=== PATIENT | female | born 1975 | race Caucasian/White ===

== ENCOUNTER 2020-09-19 04:03 | Observation (INO) ==
[2020-09-19] MEDS ORDERED: ONDANSETRON INJ 2 MG/ML 2 ML VIAL IV STA (04:22)
[2020-09-19] MEDS ORDERED: SODIUM CHLORIDE 0.9% 1000ML 1,000 ML IV STA (04:22)
[2020-09-19] MEDS ORDERED: GI COCKTAIL ED USE PO ONE (04:23)
[2020-09-19] MEDS ORDERED: FAMOTIDINE 20MG IV PUSH 20 MG/5 ML SYR IV STA (04:23)
--- NOTE | 2020-09-19 04:28 | Emergency Department Note ---
History of Present Illness General Chief complaint: Abdominal Pain Stated complaint: ABDOMINAL PAIN,NAUSEA,VOMITING Time Seen by Provider: 09/19/20 04:12 Source: patient Mode of arrival: ambulatory Limitations: no limitations History of Present Illness Provider complaint: Abdominal pain Onset (ago): day(s) 3 Maximum Pain Intensity: 7 This 45-year-old female patient presents to the emergency department today for evaluation of abdominal pain, nausea, vomiting. Patient states symptoms began on Thursday. She was seen in [place] emergency department yesterday for the symptoms where she was given Reglan, GI cocktail, had labs drawn, and was discharged with Zofran. The patient states she did not have any imaging at that time. She has been taking Zofran without relief of her symptoms. Since then, her pain has been getting worse and is now wrapping around the right upper quadrant. Patient is already on Prilosec 40 mg due to her history of reflux. She states she did have an endoscopy 5 to 6 years ago which was consistent with gastritis. Patient does report history of a gastric ulcer in her 20s and states she had similar pain at that time, but she does not recall ever wrapping around the right side. Patient states this evening while lying flat, her pain significantly worsened. She denies any associated fever. She states her mother was recently hospitalized for C. difficile and she was not eating well during that time. She states on Thursday, she did eat pizza and recalls some mild discomfort at that time, and had a hamburger on Thursday before the onset of the pain. Patient denies any hematemesis. She denies any diarrhea constipation. Last bowel movement was a few days ago which is normal for her. Patient denies any associated chest pain or dyspnea. Home Medications Medication Instructions Recorded Confirmed Type omeprazole 40 mg PO DAILY 09/19/20 09/19/20 History ondansetron 4 mg PO DAILY 09/19/20 09/19/20 History Allergies Allergy/AdvReac Type Severity Reaction Status Date / Time No Known Allergies Allergy Unverified 09/30/19 14:34 Past Med/Surg History Medical History Abnormal finding on breast imaging Depression with anxiety Gastric ulcer Gastritis Obesity Surgical History No history of previous surgery Family History Father Hypertension Social History Smoking Status: Never smoker Second Hand Exposure: No; Do You Dip or Chew Tobacco: No; Tobacco Cessation Education Requested by Patient: No Hx Alcohol Use: No Hx Substance Use: No Preferred Language: Bengali Communication Ability: Effective Equipment Service Engineer Required: No Beliefs That Will Affect Care: Mandaen Mandaen Beliefs: Sabianism Current Living Situation: Alone and Other Current Living Situation Comment: Lives w/ son. 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[place] [employer] Other Information That Helps Us Care for You: No Feels Safe at Home: Yes Safety Concerns: Feels Safe At This Time Assistive Devices: None Review of Systems A total of 10 systems reviewed and were otherwise negative Physical Exam Vital Signs Vital Signs - 24 hr 09/19/20 04:08 09/19/20 05:40 09/19/20 06:40 Temperature 36.4 C L Temperature Source Temporal Artery Scan Pulse Rate 90 85 Pulse Rate [Finger] 94 H 90 Respiratory Rate 18 18 20 Respiratory Effort / Characteristics Non-Labored Spontaneous Non-Labored Spontaneous Non-Labored Spontaneous Respiratory Depth Normal Normal Normal Blood Pressure 164/107 H Blood Pressure [Right Arm] 153/93 H 154/97 H Blood Pressure Mean 126 Blood Pressure Mean [Right Arm] 113 116 Pulse Oximetry 96 97 99 Oxygen Delivery Method Room Air Room Air Room Air Sepsis Recent Fever Within 48 Hours No Sepsis New/Unexplained Change in Mental Status N/A Sepsis Action Taken by Nursing No Action Required VITALS: Vitals are noted on the nurse's note and reviewed by myself. GENERAL: This is a 45-year-old obese white female, in no acute distress, nondiaphoretic, well-developed well-nourished. SKIN: The skin was without rashes, erythema, edema, or bruising. There is no tenting of the skin. Capillary refill less than 2 seconds. HEAD: Normocephalic atraumatic. EARS: External auditory canals clear, tympanic membranes pearly eddy without erythema or effusion bilaterally. EYES: Conjunctivae without injection, sclerae without icterus. NECK: Supple without nuchal rigidity. No lymphadenopathy. No JVD. HEART: Regular rate and rhythm without murmurs gallops or rubs. LUNGS: Clear to auscultation bilaterally without wheezes, rales or rhonchi. No retractions or accessory muscle use. ABDOMEN: Positive bowel sounds x 4. Normal tympanic percussion. Epigastrium and right upper quadrant is tender. Abdomen otherwise soft, without masses or organomegaly. Castano sign positive. No guarding or rebound tenderness. MUSCULOSKELETAL: No muscle atrophy, erythema, or edema noted. Full range of motion without joint tenderness in all extremities. No tenderness to palpation. Normal gait. Strength 5/5 throughout. NEURO: Patient was alert and oriented to person place and time. No focal neurological deficits. Course Course The patient was seen and evaluated as above. An order was placed for continuous cardiac monitoring. The monitor shows a normal sinus rhythm at a rate of 90 bpm. IV access obtained, labs drawn. Patient medicated with IV fluids, Zofran, GI cocktail, Pepcid. Imaging performed and reviewed by myself and radiologist as noted. Patient complaining of ongoing nausea. She is requesting Phenergan. This was provided. Labs reviewed by myself. I discussed the findings with the patient at bedside. Recommended medication changes, discharge home with outpatient follow-up. The patient states she would like to stay in the hospital due to her intractable nausea and inability to keep down food or fluids for the past 2 days. I discussed the case with my attending. I discussed the case with the optical laboratory manager. Discussed case with [facility] hospitalist. They did request CT abd/pelvis with contrast and will order HIDA scan. Please see hospitalist dictation regarding ongoing management care of this patient. Administered Medications Lactated Ringer's (Lr) 1,000 mls @ 80 mls/hr IV .[id number] [facility] Stop: 10/19/20 11:09 Last Admin: 09/19/20 11:21 Dose: 80 mls/hr Documented by: [id number] Pantoprazole Sodium 40 mg/ (Syringe) 10 mls @ 5 mls/min IV BID [facility] Stop: 10/19/20 11:29 Last Admin: 09/19/20 20:27 Dose: 5 mls/min Documented by: [id number] Admin: 09/19/20 12:02 Dose: 5 mls/min Documented by: [id number] Promethazine HCl 12.5 mg/ (Sodium Chloride) 50.5 mls @ 204 mls/hr IV Q6H PRN PRN Reason: Nausea And Vomiting Stop: 10/19/20 12:09 Last Infusion: 09/19/20 14:53 Dose: 0 mls/hr Documented by: [id number] Admin: 09/19/20 14:30 Dose: 204 mls/hr Documented by: [id number] Cefoxitin Sodium 1,000 mg/ (Dextrose) 60 mls @ 100 mls/hr IV Q6H JONATHAN Stop: 09/29/20 12:29 Last Infusion: 09/19/20 19:55 Dose: 0 mls/hr Documented by: [id number] Admin: 09/19/20 19:20 Dose: 100 mls/hr Documented by: [id number] Infusion: 09/19/20 14:25 Dose: 0 mls/hr Documented by: [id number] Admin: 09/19/20 13:28 Dose: 100 mls/hr Documented by: [id number] Morphine Sulfate (Morphine Sulfate 2 Mg/Ml Carp) 2 mg IV Q2H PRN PRN Reason: Pain Stop: 10/03/20 11:09 Last Admin: 09/19/20 13:28 Dose: 2 mg Documented by: [id number] Admin: 09/19/20 11:25 Dose: 2 mg Documented by: [id number] Discontinued Medications Al Hydrox/Mg Hydrox/Simethicone (Gi Cocktail Ed Use) 1 dose PO ONE ONE Stop: 09/19/20 04:24 Last Admin: 09/19/20 04:44 Dose: 1 dose Documented by: [id number] Sodium Chloride (Nss 1000ml) 1,000 mls @ 999 mls/hr IV .Q1H1M STA Stop: 09/19/20 05:22 Last Infusion: 09/19/20 07:00 Dose: 0 mls/hr Documented by: [id number] Admin: 09/19/20 04:44 Dose: 999 mls/hr Documented by: [id number] Famotidine (Pepcid 20mg Iv Push) 20 mg in 5 mls @ 2.5 mls/min IV NOW STA Stop: 09/19/20 04:24 Last Admin: 09/19/20 04:44 Dose: 2.5 mls/min Documented by: [id number] Promethazine HCl (Phenergan) 12.5 mg in 50.5 mls @ 202 mls/hr IV NOW STA Stop: 09/19/20 05:58 Last Infusion: 09/19/20 06:06 Dose: 0 mls/hr Documented by: [id number] Admin: 09/19/20 05:50 Dose: 202 mls/hr Documented by: [id number] Ioversol (Optiray 300 100ml) 90 ml IV ONCE ONE Stop: 09/19/20 07:26 Last Admin: 09/19/20 07:25 Dose: 90 ml Documented by: [id number] Ondansetron HCl (Ondansetron Inj 2 Mg/Ml 2 Ml Vial) 4 mg IV NOW STA Stop: 09/19/20 04:23 Last Admin: 09/19/20 04:44 Dose: 4 mg Documented by: [id number] Medical Decision Making Differential Diagnosis Etiologies such as appendicitis, diverticulitis, obstruction, inflammatory bowel disease, renal colic, PUD, biliary pathology, pancreatitis, mesenteric ischemia, aortic pathology, infections, genitourinary, UTI, perforated viscus, as well as others were entertained. Home Medications Current Medication List: was personally reviewed by me Laboratory Data Attestation: I reviewed the patient's lab results. No leukocytosis, anemia, thrombocytopenia. Renal, hepatic function, and electrolytes without significant abnormality. Urinalysis negative for blood or evidence of infection. Urine test negative. Result diagrams: 09/19/20 04:42 09/19/20 04:42 Lab Results 09/19/20 09/19/20 09/19/20 Range/Units 04:42 04:42 04:52 WBC 7.30 (4.8-10.8) K/uL RBC 4.72 (4.2-5.4) M/uL Hgb 13.3 (12.0-16.0) g/dL Hct 39.1 (37-47) % MCV 82.8 (80-100) fL MCH 28.2 (25-34) pg MCHC 34.0 (32-36) g/dL RDW Std Deviation 38.8 (36.4-46.3) fL RDW Coeff of Jeremiah 12.9 (11.5-14.5) % Plt Count 325 (130-400) K/uL MPV 10.1 (7.4-10.4) fL Immature Gran % (Auto) 0.1 % Neut % (Auto) 73.3 % Lymph % (Auto) 18.4 % Metcalfe % (Auto) 7.3 % Eos % (Auto) 0.5 % Baso % (Auto) 0.4 % Neut # (Auto) 5.35 (1.4-6.5) K/uL Lymph # (Auto) 1.34 (1.2-3.4) K/uL Metcalfe # (Auto) 0.53 (0.11-0.59) K/uL Eos # (Auto) 0.04 (0-0.5) K/uL Baso # (Auto) 0.03 (0-0.2) K/uL Immature Gran # (Auto) 0.01 (0.00-0.02) K/uL Sodium 140 (136-145) mmol/L Potassium 3.6 (3.5-5.1) mmol/L Chloride 108 H (98-107) mmol/L Carbon Dioxide 27 (21-32) mmol/L Anion Gap 5.0 (3-11) BUN 8 (7-18) mg/dl Creatinine 0.76 (0.6-1.2) mg/dl Est Cr Clr Drug Dosing 114.0 ml/min Est GFR ( Amer) 111.4 Est GFR (Non-Af Amer) 96.1 BUN/Creatinine Ratio 10.3 (10-20) Glucose 126 H (70-99) mg/dl Calcium 8.8 (8.5-10.1) mg/dl Total Bilirubin 0.3 (0.2-1) mg/dl AST 11 L (15-37) U/L ALT 22 (12-78) U/L Alkaline Phosphatase 82 (45-117) U/L Total Protein 7.9 (6.4-8.2) gm/dl Albumin 3.8 (3.4-5.0) gm/dl Globulin 4.1 H (2.5-4.0) gm/dl Albumin/Globulin Ratio 0.9 (0.9-2) Lipase 71 L (73-393) U/L Urine Color Yellow Urine Appearance Cloudy A (Clear) Urine pH 6.0 (4.5-7.5) Ur Specific [place] 1.017 (1.000-1.030) Urine Protein Negative (Negative) Urine Glucose (UA) Negative (Negative) Urine Ketones 1+ H (Negative) Urine Blood Negative (Negative) Urine Nitrite Negative (Negative) Urine Bilirubin Negative (Negative) Urine Urobilinogen Negative (Negative) Ur Leukocyte Esterase Negative (Negative) Urine WBC (Auto) 1-5 (0-5) /hpf Urine RBC (Auto) 5-10 H (0-4) /hpf U Hyaline Cast (Auto) 10-30 H (0-5) /lpf U Epithel Cells (Auto) >30 H (0-5) /lpf Urine Bacteria (Auto) Negative (Negative) POC Ur Test (NEG) COVID-19 Eval Order SARS-CoV-2 (PCR) (Negative) Influenza Type A (PCR) (Neg) Influenza Type B (PCR) (Neg) RSV (RT-PCR) (Neg) 09/19/20 09/19/20 09/19/20 Range/Units 04:54 07:00 07:00 WBC (4.8-10.8) K/uL RBC (4.2-5.4) M/uL Hgb (12.0-16.0) g/dL Hct (37-47) % MCV (80-100) fL MCH (25-34) pg MCHC (32-36) g/dL RDW Std Deviation (36.4-46.3) fL RDW Coeff of Jeremiah (11.5-14.5) % Plt Count (130-400) K/uL MPV (7.4-10.4) fL Immature Gran % (Auto) % Neut % (Auto) % Lymph % (Auto) % Metcalfe % (Auto) % Eos % (Auto) % Baso % (Auto) % Neut # (Auto) (1.4-6.5) K/uL Lymph # (Auto) (1.2-3.4) K/uL Metcalfe # (Auto) (0.11-0.59) K/uL Eos # (Auto) (0-0.5) K/uL Baso # (Auto) (0-0.2) K/uL Immature Gran # (Auto) (0.00-0.02) K/uL Sodium (136-145) mmol/L Potassium (3.5-5.1) mmol/L Chloride (98-107) mmol/L Carbon Dioxide (21-32) mmol/L Anion Gap (3-11) BUN (7-18) mg/dl Creatinine (0.6-1.2) mg/dl Est Cr Clr Drug Dosing ml/min Est GFR ( Amer) Est GFR (Non-Af Amer) BUN/Creatinine Ratio (10-20) Glucose (70-99) mg/dl Calcium (8.5-10.1) mg/dl Total Bilirubin (0.2-1) mg/dl AST (15-37) U/L ALT (12-78) U/L Alkaline Phosphatase (45-117) U/L Total Protein (6.4-8.2) gm/dl Albumin (3.4-5.0) gm/dl Globulin (2.5-4.0) gm/dl Albumin/Globulin Ratio (0.9-2) Lipase (73-393) U/L Urine Color Urine Appearance (Clear) Urine pH (4.5-7.5) Ur Specific [place] (1.000-1.030) Urine Protein (Negative) Urine Glucose (UA) (Negative) Urine Ketones (Negative) Urine Blood (Negative) Urine Nitrite (Negative) Urine Bilirubin (Negative) Urine Urobilinogen (Negative) Ur Leukocyte Esterase (Negative) Urine WBC (Auto) (0-5) /hpf Urine RBC (Auto) (0-4) /hpf U Hyaline Cast (Auto) (0-5) /lpf U Epithel Cells (Auto) (0-5) /lpf Urine Bacteria (Auto) (Negative) POC Ur Test NEG (NEG) COVID-19 Eval Order CovFluRsv at [facility] SARS-CoV-2 (PCR) NEGATIVE (Negative) Influenza Type A (PCR) Negative (Neg) Influenza Type B (PCR) Negative (Neg) RSV (RT-PCR) Negative (Neg) Imaging Data Radiologist's Impression: Hepatobiliary Scan Nuclear Medicine 09/19/20 06:51 NM hepatobiliary EF CLINICAL HISTORY: intractable nausea, vomiting and abdominal pain COMPARISON STUDY: None FINDINGS: The patient was injected with 5.7 mCi of technetium 99m Choletec. Sequential anterior images were acquired. The gallbladder was first visualized on the 45 minute image. 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 There is normal passage of activity into small bowel. The gallbladder ejection fraction is subjectively diminished measuring 18%. IMPRESSION: 1. No evidence of cystic duct obstruction 2. Gallbladder ejection fraction of 18%. ACT 112: Negative or not required by law. Electronically signed by: Gt Rascon M.D. 09/19/2020 10:09 AM US RUQ: Unremarkable gallbladder. No gallstones. No biliary dilatation. Common bile duct 4 mm in diameter. Mild hepatomegaly with diffuse fatty infiltration. Visualized pancreas unremarkable. Several right renal parapelvic cyst measuring up to 1 cm. No renal calculus or significant hydronephrosis. Radiologist: Jp Fuentes M.D Blood Pressure Blood Pressure Findings: Elevated blood pressure MDM Narrative This 45-year-old female patient presents to the emergency department today for evaluation of abdominal pain, nausea, vomiting for the past 2 to 3 days. Patient was already assessed and diagnosed with gastritis. She is already on PPI. She initially states she is only taking Zofran, but when I discussed with her I recommend initiating Carafate, patient states she has been taking this as well. Ultrasound imaging of the right upper quadrant completed due to her complaints of epigastric and right upper quadrant pain. This was negative for evidence of acute cholecystitis. Recommended discharge to home with change to Protonix and addition of Pepcid, Carafate, and phenergan to the patient's treatment with close outpatient follow-up, but the patient states she does not feel that she will be able to manage her nausea at home and is requesting admission. She has not had any episodes of vomiting while in the emergency department. I did consult with the [facility] hospitalist group. Please see their dictation regarding ongoing management care of this patient. The chart was completed utilizing [employer] Speech voice recognition software. Grammatical errors, random word insertions, pronoun errors, and incomplete sentences are an occasional consequence of this system due to software limitations, ambient noise, and hardware issues. Any formal questions or concerns about the content, text, or information contained within the body of this dictation should be directly addressed to the provider for clarification. Impression & Plan Acute epigastric pain, Gastritis Discharge Plan Visit Data Chief Complaint: Abdominal Pain Stated Complaint: ABDOMINAL PAIN,NAUSEA,VOMITING ED Provider: Cliff Good ED Midlevel Provider: Anahi Mayo Discharge Problem: Acute epigastric pain, Gastritis Patient Disposition: Admitted As Inpatient Condition: Good Discharge Instructions Interventions: ED Discharge Assessment Last Done: 09/19/20 11:02 Discharge Problem: Gastritis Qualifiers: Gastritis type: unspecified gastritis Chronicity: acute Gastritis bleeding: without bleeding Qualified Code(s): K29.00 - Acute gastritis without bleeding
[2020-09-19 04:49] LABS: Basophils # (auto) 0.03 K/uL (0-0.2); Basophils % (auto) 0.4 %; Eosinophils # (auto) 0.04 K/uL (0-0.5); Eosinophils % (auto) 0.5 %; Hematocrit (blood only) 39.1 % (37-47); Hemoglobin 13.3 g/dL (12.0-16.0); Immature Granulocytes # (auto) 0.01 K/uL (0.00-0.02); Immature Granulocytes % (auto) 0.1 %; Lymphocytes # (auto) 1.34 K/uL (1.2-3.4); Lymphocytes % (auto) 18.4 %; Mean Corpuscular Hemoglobin 28.2 pg (25-34); Mean Corpuscular Volume 82.8 fL (80-100); Mean Platelet Volume 10.1 fL (7.4-10.4); Monocytes # (auto) 0.53 K/uL (0.11-0.59); Monocytes % (auto) 7.3 %; Neutrophils # (auto) 5.35 K/uL (1.4-6.5); Neutrophils % (auto) 73.3 %; Platelet Count 325 K/uL (130-400); RDW Coefficient of Variation 12.9 % (11.5-14.5); RDW Standard Deviation 38.8 fL (36.4-46.3); Red Blood Count 4.72 M/uL (4.2-5.4)
[2020-09-19 05:01] LABS: Appearance Urine Cloudy (Clear); Bacteria Urine Automated Negative (Negative); Bilirubin Urine Negative (Negative); Blood Urine Negative (Negative); Color Urine Yellow; Epithelial Cell Urine Auto >30 /lpf (0-5); Glucose Urine UA Negative (Negative); Ketones Urine 1+ (Negative); Leukocyte Esterase Urine Negative (Negative); Nitrite Urine Negative (Negative); Protein Urine Negative (Negative); Specific Gravity Urine 1.017 (1.000-1.030); Urobilinogen Urine Negative (Negative)
[2020-09-19 05:10] LABS: Albumin Level 3.8 gm/dl (3.4-5.0); BUN Creatinine Ratio 10.3 (10-20); Calcium 8.8 mg/dl (8.5-10.1); Est GFR (African American) 111.4; Est GFR (Non-African American) 96.1; Potassium 3.6 mmol/L (3.5-5.1)
[2020-09-19 05:12] LABS: Albumin Globulin Ratio 0.9 (0.9-2); Bilirubin,Total 0.3 mg/dl (0.2-1); Globulin 4.1 gm/dl (2.5-4.0); Total Protein 7.9 gm/dl (6.4-8.2)
[2020-09-19] MEDS ORDERED: PROMETHAZINE 12.5 MG/50.5 ML BAG IV STA (05:44)
--- NOTE | 2020-09-19 06:49 | Ultrasound Report ---
ABDOMINAL ULTRASOUND, RIGHT UPPER QUADRANT HISTORY: RUQ, epigastric pain. COMPARISON: None. FINDINGS: Hepatic echogenicity is mildly increased. No hepatic lesions are identified. There is no bi liary ductal dilatation. The common bile duct measures 4 mm in caliber. The pancreatic body is normal . Head and tail are obscured. There are no gallstones. No gallbladder wall thickening is noted. No so nographic Castano sign was elicited. There is no right hydronephrosis. A few small right renal parapel neeta cysts are noted. IMPRESSION: 1. No gallstones or biliary ductal dilatation. 2. Probable hepatic steatosis. 3. Partially obscured pancreas. ACT 112: Negative or not required by law. Electronically signed by: Walter Mccracken M.D. 09/19/2020 6:48 AM
[2020-09-19] MEDS ORDERED: OPTIRAY 300 100mL IV ONE (07:25)
--- NOTE | 2020-09-19 07:27 | History & Physical Report ---
Date of Service September 19, 2020 Assessment & Plan (1) Acute epigastric pain: Pain in RUQ and epigastric region and nausea/vomiting x 3 days without relief with GI cocktails, Pepcid , Prilosec, antiemetics. With a h/o gastric ulcer and with recent stress. No evidence of GI bleeding RUQ US, CT abd/pel negative, HIDA scan with low EF 18% but no acute elizabeth. Labs normal, no evidence of infection COVID neg -admit on obs to medical floor -consult GI to see baout EGD -start IV Protonix 40mg bid -keep NPO and nhydrate with IVFs -if EGD normal , consider Surgery consult for cholecystectomy -follow CBC, CMP -morphine for pain, Zofran and compazine prn nausea (2) Nausea: as above (3) Depression with anxiety: continue home celexa (4) Abnormal finding on breast imaging: left retroareolar density on CT abd/pel no mass palpated on breast exam on admission, no erythema or nipple inversion, skin dimpling advised outpt diagnostic mammogram, US Discussed with patient at time of admission (5) DVT prophylaxis: SCDs only in case of procedure Dispo-bring in on obs to medical floor FULL CODE History of Present Illness Chief Complaint: Abdominal pain, nausea Primary Care Provider: Heber Loja, This patient is a 45-year-old female with history of depression/anxiety, and peptic ulcer disease/gastritis in her 20s, who presents to the ER with abdominal pain, nausea that started 3 days ago. She was initially seen in the [place] ER yesterday for the same symptoms and was given Reglan, GI cocktail, Zofran, and had laboratories drawn but no imaging at that time. She has not had any relief since then with taking Zofran. The pain is in the right upper quadrant of the abdomen, is a 7/10 in severity, constant, not relieved with anything given so far including GI cocktail, Pepcid, and antiemetics. No changes in bowel habits. Not able to keep anything down for 2-3 days, was dry heaving last night. Has been very stressed lately due to recent hospitalization of her mom. She started back on her Prilosec just 2 days ago (had been off x 1 month) with no relief so far. Denies hematochezia or melena. She had a normal right upper quadrant ultrasound in the ER and normal laboratory work-up to include LFTs and lipase, normal CBC, negative troponin. She was given IV Pepcid, IV Zofran, IV Phenergan, and a liter of normal saline as well as a GI cocktail. Due to her intractable nausea, she will be admitted to the hospital and have further work-up with a CT abdomen/pelvis and HIDA scan. No HCG performed but pt reports not sexually active. Prior to admission, CT abd/pel complete which was neg for intra-abdominal pathology. HIDA scan was neg for acute elizabeth but did show reduced EF at 18%. Allergies Allergy/AdvReac Type Severity Reaction Status Date / Time No Known Allergies Allergy Unverified 09/30/19 14:34 Home Medications Medication Instructions Recorded Confirmed Type omeprazole 40 mg PO DAILY 09/19/20 09/19/20 History ondansetron 4 mg PO DAILY 09/19/20 09/19/20 History Past Med/Surg History Medical History (Updated 09/19/20 @ 10:45 by Laura Chase MD) Abnormal finding on breast imaging Depression with anxiety Gastric ulcer Gastritis Surgical History (Updated 09/19/20 @ 10:38 by Laura Chase MD) No history of previous surgery Family History (Updated 09/19/20 @ 10:38 by Laura Chase MD) Father Hypertension Social History (Updated 09/19/20 @ 10:39 by Laura Chase MD) Smoking Status: Never smoker Hx Alcohol Use: No Hx Substance Use: No Preferred Language: Nepalese 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[employer] Feels Safe at Home: Yes Review of Systems Review of Systems: All systems reviewed & are unremarkable except as noted in HPI & below Physical Exam Constitutional: WD/WN, vitals as above Eyes: + anicteric sclerae ENMT: Ears: no hearing impairment and no external ear abnormality Neck: trachea midline, no thyromegaly Respiratory: normal respiratory effort, lungs clear to auscultation Cardiovascular: RRR, no murmur, no edema Chest (Breasts): Chest: normal inspection of chest Breast: normal inspection of breasts and normal palpation of breasts; no skin thickening, no breast mass and no breast tenderness Gastrointestinal (Abdomen): Inspection/Auscultation: abdomen normal to inspection and normal bowel sounds; abdomen not distended Percussion/Palpation: + abdomen tender (in RUQ/Epigastric w/o guarding or rebound) and abdomen soft; no guarding, no hernia and no abdominal mass Musculoskeletal: Extremities: extremities normal to inspection; no cyanosis and no clubbing Skin: no rashes, warm and dry Neurologic: moves all extremities and awake; no focal motor deficits Psychiatric: A+Ox3, euthymic affect Lymphatic: no lymphedema Results & Data Results & Data ([facility]) Vital Signs (Past 12 Hours) Vital Signs Temp Pulse Pulse Resp BP BP Pulse Ox 09/19/20 06:40 90 20 154/97 H 99 09/19/20 05:40 85 94 H 18 153/93 H 97 09/19/20 04:08 36.4 C L 90 18 164/107 H 96 Laboratory Results 09/19/20 09/19/20 09/19/20 Range/Units 07:00 07:00 04:54 WBC (4.8-10.8) K/uL RBC (4.2-5.4) M/uL Hgb (12.0-16.0) g/dL Hct (37-47) % MCV (80-100) fL MCH (25-34) pg MCHC (32-36) g/dL RDW Std Deviation (36.4-46.3) fL RDW Coeff of Jeremiah (11.5-14.5) % Plt Count (130-400) K/uL MPV (7.4-10.4) fL Immature Gran % (Auto) % Neut % (Auto) % Lymph % (Auto) % Green % (Auto) % Eos % (Auto) % Baso % (Auto) % Neut # (Auto) (1.4-6.5) K/uL Lymph # (Auto) (1.2-3.4) K/uL Green # (Auto) (0.11-0.59) K/uL Eos # (Auto) (0-0.5) K/uL Baso # (Auto) (0-0.2) K/uL Immature Gran # (Auto) (0.00-0.02) K/uL Sodium (136-145) mmol/L Potassium (3.5-5.1) mmol/L Chloride (98-107) mmol/L Carbon Dioxide (21-32) mmol/L Anion Gap (3-11) BUN (7-18) mg/dl Creatinine (0.6-1.2) mg/dl Est Cr Clr Drug Dosing ml/min Est GFR ( Amer) Est GFR (Non-Af Amer) BUN/Creatinine Ratio (10-20) Glucose (70-99) mg/dl Calcium (8.5-10.1) mg/dl Total Bilirubin (0.2-1) mg/dl AST (15-37) U/L ALT (12-78) U/L Alkaline Phosphatase (45-117) U/L Total Protein (6.4-8.2) gm/dl Albumin (3.4-5.0) gm/dl Globulin (2.5-4.0) gm/dl Albumin/Globulin Ratio (0.9-2) Lipase (73-393) U/L Urine Color Urine Appearance (Clear) Urine pH (4.5-7.5) Ur Specific [place] (1.000-1.030) Urine Protein (Negative) Urine Glucose (UA) (Negative) Urine Ketones (Negative) Urine Blood (Negative) Urine Nitrite (Negative) Urine Bilirubin (Negative) Urine Urobilinogen (Negative) Ur Leukocyte Esterase (Negative) Urine WBC (Auto) (0-5) /hpf Urine RBC (Auto) (0-4) /hpf U Hyaline Cast (Auto) (0-5) /lpf U Epithel Cells (Auto) (0-5) /lpf Urine Bacteria (Auto) (Negative) POC Ur Test NEG (NEG) COVID-19 Eval Order CovFluRsv at [facility] SARS-CoV-2 (PCR) Pending Influenza Type A (PCR) Pending Influenza Type B (PCR) Pending RSV (RT-PCR) Pending 09/19/20 09/19/20 09/19/20 Range/Units 04:52 04:42 04:42 WBC 7.30 (4.8-10.8) K/uL RBC 4.72 (4.2-5.4) M/uL Hgb 13.3 (12.0-16.0) g/dL Hct 39.1 (37-47) % MCV 82.8 (80-100) fL MCH 28.2 (25-34) pg MCHC 34.0 (32-36) g/dL RDW Std Deviation 38.8 (36.4-46.3) fL RDW Coeff of Jeremiah 12.9 (11.5-14.5) % Plt Count 325 (130-400) K/uL MPV 10.1 (7.4-10.4) fL Immature Gran % (Auto) 0.1 % Neut % (Auto) 73.3 % Lymph % (Auto) 18.4 % Green % (Auto) 7.3 % Eos % (Auto) 0.5 % Baso % (Auto) 0.4 % Neut # (Auto) 5.35 (1.4-6.5) K/uL Lymph # (Auto) 1.34 (1.2-3.4) K/uL Green # (Auto) 0.53 (0.11-0.59) K/uL Eos # (Auto) 0.04 (0-0.5) K/uL Baso # (Auto) 0.03 (0-0.2) K/uL Immature Gran # (Auto) 0.01 (0.00-0.02) K/uL Sodium 140 (136-145) mmol/L Potassium 3.6 (3.5-5.1) mmol/L Chloride 108 H (98-107) mmol/L Carbon Dioxide 27 (21-32) mmol/L Anion Gap 5.0 (3-11) BUN 8 (7-18) mg/dl Creatinine 0.76 (0.6-1.2) mg/dl Est Cr Clr Drug Dosing 114.0 ml/min Est GFR ( Amer) 111.4 Est GFR (Non-Af Amer) 96.1 BUN/Creatinine Ratio 10.3 (10-20) Glucose 126 H (70-99) mg/dl Calcium 8.8 (8.5-10.1) mg/dl Total Bilirubin 0.3 (0.2-1) mg/dl AST 11 L (15-37) U/L ALT 22 (12-78) U/L Alkaline Phosphatase 82 (45-117) U/L Total Protein 7.9 (6.4-8.2) gm/dl Albumin 3.8 (3.4-5.0) gm/dl Globulin 4.1 H (2.5-4.0) gm/dl Albumin/Globulin Ratio 0.9 (0.9-2) Lipase 71 L (73-393) U/L Urine Color Yellow Urine Appearance Cloudy A (Clear) Urine pH 6.0 (4.5-7.5) Ur Specific [place] 1.017 (1.000-1.030) Urine Protein Negative (Negative) Urine Glucose (UA) Negative (Negative) Urine Ketones 1+ H (Negative) Urine Blood Negative (Negative) Urine Nitrite Negative (Negative) Urine Bilirubin Negative (Negative) Urine Urobilinogen Negative (Negative) Ur Leukocyte Esterase Negative (Negative) Urine WBC (Auto) 1-5 (0-5) /hpf Urine RBC (Auto) 5-10 H (0-4) /hpf U Hyaline Cast (Auto) 10-30 H (0-5) /lpf U Epithel Cells (Auto) >30 H (0-5) /lpf Urine Bacteria (Auto) Negative (Negative) POC Ur Test (NEG) COVID-19 Eval Order SARS-CoV-2 (PCR) Influenza Type A (PCR) Influenza Type B (PCR) RSV (RT-PCR) Diagnostic Findings Abdomen Ultrasound 09/19/20 04:22 ABDOMINAL ULTRASOUND, RIGHT UPPER QUADRANT HISTORY: RUQ, epigastric pain. COMPARISON: None. FINDINGS: Hepatic echogenicity is mildly increased. No hepatic lesions are nunu ntified. There is no biliary ductal dilatation. The common bile duct measures 4 mm in caliber. The pancreatic body is normal. Head and tail are obscured. There are no gallstones. No gallbladder wall thickening is noted. No sonographic Castano sign was elicited. There is no right hydronephrosis. A few small right renal parapelvic cysts are noted. IMPRESSION: 1. No gallstones or biliary ductal dilatation. 2. Probable hepatic steatosis. 3. Partially obscured pancreas. ACT 112: Negative or not required by law. Electronically signed by: Walter Mccracken M.D. 09/19/2020 6:48 AM Hepatobiliary Scan Nuclear Medicine 09/19/20 06:51 NM hepatobiliary EF CLINICAL HISTORY: intractable nausea, vomiting and abdominal pain COMPARISON STUDY: None FINDINGS: The patient was injected with 5.7 mCi of technetium 99m Choletec. Sequential anterior images were acquired. The gallbladder was first visualized on the 45 minute image. 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 There is normal passage of activity into small bowel. The gallbladder ejection fraction is subjectively diminished measuring 18%. IMPRESSION: 1. No evidence of cystic duct obstruction 2. Gallbladder ejection fraction of 18%. ACT 112: Negative or not required by law. Electronically signed by: Gt Rascon M.D. 09/19/2020 10:09 AM Abdomen/Pelvis CT 09/19/20 06:53 CT OF THE ABDOMEN AND PELVIS WITH CONTRAST CLINICAL HISTORY: epigastric pain, intractable nausea COMPARISON STUDY: Right upper quadrant ultrasound September 19, 2020. TECHNIQUE: Following IV administration of 90 mL of Optiray, axial images of the abdomen and pelvis were obtained from the lung bases to the proximal femurs. Images were reviewed in the axial, sagittal, and coronal planes. IV contrast was administered without complication. Automated exposure control was utilized for the study. A dose lowering technique was utilized adhering to the principles of ALARA. CT DOSE: 1231.94 mGy.cm FINDINGS: Note is made of subcutaneous infiltration and suspected skin thickening of the left lower lateral chest wall. Apparent asymmetric left retroareolar density is noted. This probably reflects breast tissue however a mass cannot be completely excluded. No pneumatosis, free air or portal venous gas is present. There is hepatic steatosis. Size of the spleen is at the upper limits of normal. The adrenal glands, kidneys and pancreas are normal. There is no hydronephrosis. The caliber and wall thickness of small and large bowel are normal. Colonic diverticulosis is noted without evidence for acute diverticulitis. The appendix is unremarkable. There is no ascites or lymphadenopathy. No biliary or pancreatic ductal dilatation is present. There is no peripancreatic or pericholecystic infiltration. Major vasculature is patent. No acute fracture or suspicious lesion is identified within the visualized skeletal structures. IMPRESSION: 1. Mild subcutaneous infiltration and skin thickening of the left inferolateral chest wall. This is nonspecific but may reflect cellulitis. A contusion could appear similar. 2. No acute process within the abdomen or pelvis. 3. Left retroareolar density. This probably reflects breast tissue however a mass cannot be excluded. Nonemergent mammogram and ultrasound are recommended. ACT 112: Negative or not required by law. Electronically signed by: Walter Mccracken M.D. 09/19/2020 7:43 AM Code Status & VTE Plan Code Status FULL CODE VTE Prophylaxis Plan VTE Prophylaxis will be ordered: Yes PG Care Time/CCT Total # of Minutes Spent Total Time Spent with Patient: Total time spent is greater than 50% in coordination of care (as documented) at patient's floor/unit and/or counseling patient: Coding Level of Care Code 18145 OBS Care - Level 3 Diagnoses Acute epigastric pain R10.13 Nausea R11.0 Depression with anxiety F41.8 Abnormal finding on breast imaging R92.8 DVT prophylaxis Z29.9
--- NOTE | 2020-09-19 07:44 | CT Scan Report ---
CT OF THE ABDOMEN AND PELVIS WITH CONTRAST CLINICAL HISTORY: epigastric pain, intractable nausea COMPARISON STUDY: Right upper quadrant ultrasound September 19, 2020. TECHNIQUE: Following IV administration of 90 mL of Optiray, axial images of the abdomen and pelvis we re obtained from the lung bases to the proximal femurs. Images were reviewed in the axial, sagittal, and coronal planes. IV contrast was administered without complication. Automated exposure control wa s utilized for the study. A dose lowering technique was utilized adhering to the principles of ALARA . CT DOSE: 1231.94 mGy.cm FINDINGS: Note is made of subcutaneous infiltration and suspected skin thickening of the left lower l ateral chest wall. Apparent asymmetric left retroareolar density is noted. This probably reflects jose luis ast tissue however a mass cannot be completely excluded. No pneumatosis, free air or portal venous ga s is present. There is hepatic steatosis. Size of the spleen is at the upper limits of normal. The ad renal glands, kidneys and pancreas are normal. There is no hydronephrosis. The caliber and wall thick ness of small and large bowel are normal. Colonic diverticulosis is noted without evidence for acute diverticulitis. The appendix is unremarkable. There is no ascites or lymphadenopathy. No biliary or p ancreatic ductal dilatation is present. There is no peripancreatic or pericholecystic infiltration. M ajor vasculature is patent. No acute fracture or suspicious lesion is identified within the visualize d skeletal structures. IMPRESSION: 1. Mild subcutaneous infiltration and skin thickening of the left inferolateral chest wall. This is n onspecific but may reflect cellulitis. A contusion could appear similar. 2. No acute process within the abdomen or pelvis. 3. Left retroareolar density. This probably reflects breast tissue however a mass cannot be excluded. Nonemergent mammogram and ultrasound are recommended. ACT 112: Negative or not required by law. Electronically signed by: Walter Mccracken M.D. 09/19/2020 7:43 AM
--- NOTE | 2020-09-19 07:52 | Emergency Department Note ---
: Gastritis Qualifiers: Gastritis type: unspecified gastritis Chronicity: acute Gastritis bleeding: without bleeding Qualified Code(s): K29.00 - Acute gastritis without bleeding
[2020-09-19 08:05] LABS: Influenza A virus by PCR Negative (Neg); Influenza B virus by PCR Negative (Neg); RSV by PCR Negative (Neg); SARS CoV2 RNA(COVID-19) InHosp NEGATIVE (Negative)
--- NOTE | 2020-09-19 10:10 | Nuclear Medicine Report ---
NM hepatobiliary EF CLINICAL HISTORY: intractable nausea, vomiting and abdominal pain COMPARISON STUDY: None FINDINGS: The patient was injected with 5.7 mCi of technetium 99m Choletec. Sequential anterior images were acq uired. The gallbladder was first visualized on the 45 minute image. 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 There is normal passage of activity into small bowel. The gallbladder ejection fraction is subjectively diminished measuring 18%. IMPRESSION: 1. No evidence of cystic duct obstruction 2. Gallbladder ejection fraction of 18%. ACT 112: Negative or not required by law. Electronically signed by: Gt Rascon M.D. 09/19/2020 10:09 AM
[2020-09-19] MEDS ORDERED: ONDANSETRON INJ 2 MG/ML 2 ML VIAL IV PRN ×2 (11:10→12:10)
[2020-09-19] MEDS ORDERED: PROCHLORPERAZINE 10 MG in SYRINGE 8 ML IV PRN (11:10)
[2020-09-19] MEDS: LACTATED RINGER'S 1,000 ML IV SCH ×2 (11:21→23:58)
[2020-09-19] MEDS: MoRPHine SULFATE 2 MG/ML CARP IV PRN ×3 (11:25→21:48)
--- NOTE | 2020-09-19 11:36 | Gastrointestinal Consultation ---
Date of Consultation September 19, 2020 Assessment & Plan (1) Nausea: 45 year old female with epigastric and RUQ pain, nausea, dry heaving and anorexia since Thursday/Thursday. CT w/o any evidence of PUD, HIDA w/ low EF. Discussed with general surgery who will evaluate. - NPO - Request general surgery consultation - PO PPI BID - Can consider endoscopy pending general surgery consultation - Recall as needed. Thank you for allowing us to participate in the care of this patient. Please call with any acute changes, questions or concerns. Please see addendum below with additional recommendation from my supervising physician. Supervising Physician Co-Signing Physician Notes Attending attestation I have seen, examined this patient, and agree with the findings and above by our mid-level provider JOSH Willingham, with the following additions: -Patient with chronic after intermittent right upper quad abdominal pain that started since Thursday. She has pain in the right upper quadrant is predictable with an EF that is low on HIDA scan. She does not have melena, heartburn, or risk factors for peptic ulcer disease, I think this likely represents a calculus cholecystitis and have called general surgery for evaluation and is seeing the patient for consideration of cholecystectomy. History of Present Illness Reason for Consultation: ruq pain Requesting Physician: toño Attending Physician: Laura Chase MD History of Present Illness 45 year old female admitted w/ abd pain gi asked to evaluate. pt was seen and evaluated, chart reviewed. notes she had gastric ulcer years ago in her 20s. Currently with acute symptoms. Started Thursday/Thursday. Epigastric, RUQ pain. Associated with nausea/vomiting and food aversion no nsaids no etoh caffeine daily no acute GI findings on CT ABD US without acute findings HIDA w/ low EF Allergies Allergy/AdvReac Type Severity Reaction Status Date / Time No Known Allergies Allergy Unverified 09/30/19 14:34 Home Medications Medication Instructions Recorded Confirmed Type omeprazole 40 mg PO DAILY 09/19/20 09/19/20 History ondansetron 4 mg PO DAILY 09/19/20 09/19/20 History Patient History Medical History Abnormal finding on breast imaging Depression with anxiety Gastric ulcer Gastritis Surgical History No history of previous surgery Family History Father Hypertension Social History Smoking Status: Never smoker Second Hand Exposure: No; Do You Dip or Chew Tobacco: No; Tobacco Cessation Education Requested by Patient: No Hx Alcohol Use: No Hx Substance Use: No Preferred Language: Portuguese Communication Ability: Effective Research & Analytics Manager Required: No Beliefs That Will Affect Care: Advent Advent Beliefs: Jewish Current Living Situation: Alone and Other Current Living Situation Comment: Lives w/ son. 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[employer] Other Information That Helps Us Care for You: No Feels Safe at Home: Yes Safety Concerns: Feels Safe At This Time Assistive Devices: None Review of Systems Review of Systems: All systems reviewed & are unremarkable except as noted in HPI & below Physical Exam Constitutional: well developed, well nourished and average body habitus; no acute distress Neck: trachea midline, no thyromegaly Respiratory: normal respiratory effort, lungs clear to auscultation Cardiovascular: RRR, no murmur, no edema Gastrointestinal (Abdomen): Inspection/Auscultation: abdomen normal to inspection and normal bowel sounds; abdomen not distended Percussion/Palpation: + abdomen tender and abdomen soft; no guarding, abdomen not rigid, no abdominal mass and no ascites Skin: no rashes, warm and dry Results & Data ([facility]) Vital Signs (Past 12 Hours) Vital Signs Temp Pulse Pulse Resp BP BP BP 09/19/20 11:19 36.6 C 98 H 18 137/89 09/19/20 10:45 93 H 18 171/107 H 09/19/20 06:40 90 20 154/97 H 09/19/20 05:40 85 94 H 18 153/93 H 09/19/20 04:08 36.4 C L 90 18 164/107 H Pulse Ox 09/19/20 11:19 95 09/19/20 10:45 98 09/19/20 06:40 99 09/19/20 05:40 97 09/19/20 04:08 96 Laboratory Results 09/19/20 09/19/20 09/19/20 Range/Units 07:00 07:00 04:54 WBC (4.8-10.8) K/uL RBC (4.2-5.4) M/uL Hgb (12.0-16.0) g/dL Hct (37-47) % MCV (80-100) fL MCH (25-34) pg MCHC (32-36) g/dL RDW Std Deviation (36.4-46.3) fL RDW Coeff of Jeremiah (11.5-14.5) % Plt Count (130-400) K/uL MPV (7.4-10.4) fL Immature Gran % (Auto) % Neut % (Auto) % Lymph % (Auto) % [place] % (Auto) % Eos % (Auto) % Baso % (Auto) % Neut # (Auto) (1.4-6.5) K/uL Lymph # (Auto) (1.2-3.4) K/uL [place] # (Auto) (0.11-0.59) K/uL Eos # (Auto) (0-0.5) K/uL Baso # (Auto) (0-0.2) K/uL Immature Gran # (Auto) (0.00-0.02) K/uL Sodium (136-145) mmol/L Potassium (3.5-5.1) mmol/L Chloride (98-107) mmol/L Carbon Dioxide (21-32) mmol/L Anion Gap (3-11) BUN (7-18) mg/dl Creatinine (0.6-1.2) mg/dl Est Cr Clr Drug Dosing ml/min Est GFR ( Amer) Est GFR (Non-Af Amer) BUN/Creatinine Ratio (10-20) Glucose (70-99) mg/dl Calcium (8.5-10.1) mg/dl Total Bilirubin (0.2-1) mg/dl AST (15-37) U/L ALT (12-78) U/L Alkaline Phosphatase (45-117) U/L Total Protein (6.4-8.2) gm/dl Albumin (3.4-5.0) gm/dl Globulin (2.5-4.0) gm/dl Albumin/Globulin Ratio (0.9-2) Lipase (73-393) U/L Urine Color Urine Appearance (Clear) Urine pH (4.5-7.5) Ur Specific [place] (1.000-1.030) Urine Protein (Negative) Urine Glucose (UA) (Negative) Urine Ketones (Negative) Urine Blood (Negative) Urine Nitrite (Negative) Urine Bilirubin (Negative) Urine Urobilinogen (Negative) Ur Leukocyte Esterase (Negative) Urine WBC (Auto) (0-5) /hpf Urine RBC (Auto) (0-4) /hpf U Hyaline Cast (Auto) (0-5) /lpf U Epithel Cells (Auto) (0-5) /lpf Urine Bacteria (Auto) (Negative) POC Ur Test NEG (NEG) COVID-19 Eval Order CovFluRsv at [facility] SARS-CoV-2 (PCR) NEGATIVE (Negative) Influenza Type A (PCR) Negative (Neg) Influenza Type B (PCR) Negative (Neg) RSV (RT-PCR) Negative (Neg) 09/19/20 09/19/20 09/19/20 Range/Units 04:52 04:42 04:42 WBC 7.30 (4.8-10.8) K/uL RBC 4.72 (4.2-5.4) M/uL Hgb 13.3 (12.0-16.0) g/dL Hct 39.1 (37-47) % MCV 82.8 (80-100) fL MCH 28.2 (25-34) pg MCHC 34.0 (32-36) g/dL RDW Std Deviation 38.8 (36.4-46.3) fL RDW Coeff of Jeremiah 12.9 (11.5-14.5) % Plt Count 325 (130-400) K/uL MPV 10.1 (7.4-10.4) fL Immature Gran % (Auto) 0.1 % Neut % (Auto) 73.3 % Lymph % (Auto) 18.4 % [place] % (Auto) 7.3 % Eos % (Auto) 0.5 % Baso % (Auto) 0.4 % Neut # (Auto) 5.35 (1.4-6.5) K/uL Lymph # (Auto) 1.34 (1.2-3.4) K/uL [place] # (Auto) 0.53 (0.11-0.59) K/uL Eos # (Auto) 0.04 (0-0.5) K/uL Baso # (Auto) 0.03 (0-0.2) K/uL Immature Gran # (Auto) 0.01 (0.00-0.02) K/uL Sodium 140 (136-145) mmol/L Potassium 3.6 (3.5-5.1) mmol/L Chloride 108 H (98-107) mmol/L Carbon Dioxide 27 (21-32) mmol/L Anion Gap 5.0 (3-11) BUN 8 (7-18) mg/dl Creatinine 0.76 (0.6-1.2) mg/dl Est Cr Clr Drug Dosing 114.0 ml/min Est GFR ( Amer) 111.4 Est GFR (Non-Af Amer) 96.1 BUN/Creatinine Ratio 10.3 (10-20) Glucose 126 H (70-99) mg/dl Calcium 8.8 (8.5-10.1) mg/dl Total Bilirubin 0.3 (0.2-1) mg/dl AST 11 L (15-37) U/L ALT 22 (12-78) U/L Alkaline Phosphatase 82 (45-117) U/L Total Protein 7.9 (6.4-8.2) gm/dl Albumin 3.8 (3.4-5.0) gm/dl Globulin 4.1 H (2.5-4.0) gm/dl Albumin/Globulin Ratio 0.9 (0.9-2) Lipase 71 L (73-393) U/L Urine Color Yellow Urine Appearance Cloudy A (Clear) Urine pH 6.0 (4.5-7.5) Ur Specific [place] 1.017 (1.000-1.030) Urine Protein Negative (Negative) Urine Glucose (UA) Negative (Negative) Urine Ketones 1+ H (Negative) Urine Blood Negative (Negative) Urine Nitrite Negative (Negative) Urine Bilirubin Negative (Negative) Urine Urobilinogen Negative (Negative) Ur Leukocyte Esterase Negative (Negative) Urine WBC (Auto) 1-5 (0-5) /hpf Urine RBC (Auto) 5-10 H (0-4) /hpf U Hyaline Cast (Auto) 10-30 H (0-5) /lpf U Epithel Cells (Auto) >30 H (0-5) /lpf Urine Bacteria (Auto) Negative (Negative) POC Ur Test (NEG) COVID-19 Eval Order SARS-CoV-2 (PCR) (Negative) Influenza Type A (PCR) (Neg) Influenza Type B (PCR) (Neg) RSV (RT-PCR) (Neg)
[2020-09-19] MEDS: PANTOprazole 40 MG in SYRINGE 0 ML IV SCH ×2 (12:02→20:27)
[2020-09-19] MEDS ORDERED: PROMETHAZINE HCL 25 MG in SODIUM CHLORIDE 0.9% 50 ML IV PRN (12:10)
[2020-09-19] MEDS ORDERED: PROMETHAZINE HCL 12.5 MG in SODIUM CHLORIDE 0.9% 50 ML IV PRN (12:10)
--- NOTE | 2020-09-19 12:30 | Surgery Consultation ---
Date of Consultation September 19, 2020 Assessment & Plan (1) Nausea: This is a 45yF with a PMH of anxiety/depression who reports to the [facility] ED on 09/19/20 with complaints of abdominal pain and nausea since last Thursday. She did go to the [place] ER yesterday due to worsening symptoms and was given a GI cocktail and was discharged to home as her lab-work was normal (apparently no imaging performed on this visit). Since returning home she had no relief with the zofran and her symptoms continued to worsen prompting her to come to our ER. She has a WBC 7 and LFT's are unremarkable. RUQ US showed no stones or ductal dilation, CT with no acute intra-abdominal abnormalities, and a HIDA was perform ed that showed a low EF of 18%. On exam patient reports discomfort to palpation in the epigastric and RUQ regions. Based on symptoms/history, exam, and HIDA findings we will decide to proceed with taking patient to the OR for a laparoscopic cholecystectomy. Plan of care discussed with GI. Patient agreeable. Okay for clear liquids today and NPO at midnight. Dr. Alvarez has seen patient and obtain consent. (2) Acute epigastric pain: History of Present Illness Attending Physician: Laura Chase MD History of Present Illness This is a 45yF with a PMH of anxiety/depression who reports to the [facility] ED on 09/19/20 with complaints of abdominal pain and nausea. She states she noticed some cramping abdominal pain that started this past Thursday after eating pizza. On Thursday her pain became more localized in the epigastric and RUQ region. She reports associated nausea and dry-heaving and unable to tolerate much to eat or drink. She went to the [place] ER yesterday and said that they gave her a GI cocktail, stated her labs were normal, and she was sent home with an Rx for zofran. She reports since returning home and taking the zofran her symptoms did not improve at all and her pain continued to remain present, along with nausea/dry-heaves prompting her to come into our ER this AM for further evaluation. In the ER an US showed no stones, biliary dilation, or concern for cholecystitis. HIDA scan showed a low EF of 18%, and a CT a/p showed no acute intra-abdominal process. Lab work overall unremarkable including LFT's. Patient denies any fevers, chest pain, shortness of breath or changes in bowel habits. She denies any previous abdominal surgery. Allergies Allergy/AdvReac Type Severity Reaction Status Date / Time No Known Allergies Allergy Unverified 09/30/19 14:34 Home Medications Medication Instructions Recorded Confirmed Type omeprazole 40 mg PO DAILY 09/19/20 09/19/20 History ondansetron 4 mg PO DAILY 09/19/20 09/19/20 History Patient History Medical History Abnormal finding on breast imaging Depression with anxiety Gastric ulcer Gastritis Obesity Surgical History No history of previous surgery Family History Father Hypertension Social History Smoking Status: Never smoker Second Hand Exposure: No; Do You Dip or Chew Tobacco: No; Tobacco Cessation Education Requested by Patient: No Hx Alcohol Use: No Hx Substance Use: No Preferred Language: Singaporean Communication Ability: Effective Neurology Technologist Required: No Beliefs That Will Affect Care: Zoroastrian Zoroastrian Beliefs: Confucianist Current Living Situation: Alone and Other Current Living Situation Comment: Lives w/ son. 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[place] [employer] Other Information That Helps Us Care for You: No Feels Safe at Home: Yes Safety Concerns: Feels Safe At This Time Assistive Devices: None Review of Systems Constitutional: + chills; no fever Respiratory: no dyspnea Cardiovascular: no chest pain Gastrointestinal: + abdominal pain and + nausea; no change in bowel habits Physical Exam Physical Exam: awake/alert Constitutional: well developed and well nourished; no acute distress Respiratory: normal respiratory effort Gastrointestinal (Abdomen): Percussion/Palpation: + abdomen tender (some discomfort to palpation in the epigastric and RUQ regions) and abdomen soft Results & Data ([facility]) Vital Signs (Past 12 Hours) Vital Signs Temp Pulse Pulse Resp BP BP BP 09/19/20 11:19 36.6 C 98 H 18 137/89 09/19/20 10:45 93 H 18 171/107 H 05/12/21 06:40 90 20 154/97 H 09/19/20 05:40 85 94 H 18 153/93 H 09/19/20 04:08 36.4 C L 90 18 164/107 H Pulse Ox 09/19/20 11:19 95 09/19/20 10:45 98 09/19/20 06:40 99 09/19/20 05:40 97 09/19/20 04:08 96 ABDOMINAL ULTRASOUND, RIGHT UPPER QUADRANT HISTORY: RUQ, epigastric pain. COMPARISON: None. FINDINGS: Hepatic echogenicity is mildly increased. No hepatic lesions are identified. There is no biliary ductal dilatation. The common bile duct measures 4 mm in caliber. The pancreatic body is normal. Head and tail are obscured. There are no gallstones. No gallbladder wall thickening is noted. No sonographic Castano sign was elicited. There is no right hydronephrosis. A few small right renal parapelvic cysts are noted. IMPRESSION: 1. No gallstones or biliary ductal dilatation. 2. Probable hepatic steatosis. 3. Partially obscured pancreas. ACT 112: Negative or not required by law. Electronically signed by: Walter Mccrakcen M.D. 09/19/2020 6:48 AM NM hepatobiliary EF CLINICAL HISTORY: intractable nausea, vomiting and abdominal pain COMPARISON STUDY: None FINDINGS: The patient was injected with 5.7 mCi of technetium 99m Choletec. Sequential anterior images were acquired. The gallbladder was first visualized on the 45 minute image. 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 There is normal passage of activity into small bowel. The gallbladder ejection fraction is subjectively diminished measuring 18%. IMPRESSION: 1. No evidence of cystic duct obstruction 2. Gallbladder ejection fraction of 18%. ACT 112: Negative or not required by law. Electronically signed by: Gt Rascon M.D. 09/19/2020 10:[address] OF THE ABDOMEN AND PELVIS WITH CONTRAST CLINICAL HISTORY: epigastric pain, intractable nausea COMPARISON STUDY: Right upper quadrant ultrasound September 19, 2020. TECHNIQUE: Following IV administration of 90 mL of Optiray, axial images of the abdomen and pelvis were obtained from the lung bases to the proximal femurs. Images were reviewed in the axial, sagittal, and coronal planes. IV contrast was administered without complication. Automated exposure control was utilized for the study. A dose lowering technique was utilized adhering to the principles of ALARA. CT DOSE: 1231.94 mGy.cm FINDINGS: Note is made of subcutaneous infiltration and suspected skin thickening of the left lower lateral chest wall. Apparent asymmetric left retroareolar density is noted. This probably reflects breast tissue however a mass cannot be completely excluded. No pneumatosis, free air or portal venous gas is present. There is hepatic steatosis. Size of the spleen is at the upper limits of normal. The adrenal glands, kidneys and pancreas are normal. There is no hydronephrosis. The caliber and wall thickness of small and large bowel are normal. Colonic diverticulosis is noted without evidence for acute diverticulitis. The appendix is unremarkable. There is no ascites or lymphadenopathy. No biliary or pancreatic ductal dilatation is present. There is no peripancreatic or pericholecystic infiltration. Major vasculature is patent. No acute fracture or suspicious lesion is identified within the visualized skeletal structures. IMPRESSION: 1. Mild subcutaneous infiltration and skin thickening of the left inferolateral chest wall. This is nonspecific but may reflect cellulitis. A contusion could appear similar. 2. No acute process within the abdomen or pelvis. 3. Left retroareolar density. This probably reflects breast tissue however a mass cannot be excluded. Nonemergent mammogram and ultrasound are recommended. ACT 112: Negative or not required by law. Electronically signed by: Walter Mccracken M.D. 09/19/2020 7:43 AM PG Care Time/CCT Total # of Minutes Spent Total Time Spent with Patient: Total time spent is greater than 50% in coordination of care (as documented) at patient's floor/unit and/or counseling patient: Coding Level of Care Code 91381 Inpt Consult Level 3 Diagnoses Nausea R11.0 Acute epigastric pain R10.13
--- NOTE | 2020-09-19 17:31 | Anesthesiology Consultation ---
Date of Service September 19, 2020 Assessment & Plan (1) Encounter for pre-operative examination: Chart Review Chart Review: Acceptable Risk for Surgery and Patient NOT seen in Pre Admission Testing Consults Requested none History Surgery Operation Date: 09/20/20 07:15 Proposed Procedures p Laparoscopic Cholecystectomy - Mekhi Alvarez MD, FACS Height/Weight Height: 5 ft 5 in Weight: 103.6 kg Allergies Allergy/AdvReac Type Severity Reaction Status Date / Time No Known Allergies Allergy Unverified 09/30/19 14:34 Medications Home Medications Medication Instructions Recorded Confirmed Last Taken omeprazole 40 mg PO DAILY 09/19/20 09/19/20 Unknown ondansetron 4 mg PO DAILY 09/19/20 09/19/20 Unknown Active Medications Generic Name Dose Route Start Last Admin Trade Name Freq PRN Reason Stop Dose Admin Lactated Ringer's 1,000 mls @ 80 mls/hr 09/19/20 11:10 09/19/20 11:21 Lr IV 10/19/20 11:09 80 mls/hr .[id number] JONATHAN Administration Pantoprazole Sodium 40 mg/ 10 mls @ 5 mls/min 09/19/20 11:30 09/19/20 12:02 Syringe IV 10/19/20 11:29 5 mls/min BID JONATHAN Administration Promethazine HCl 12.5 mg/ 50.5 mls @ 204 mls/hr 09/19/20 12:10 09/19/20 14:53 Sodium Chloride IV 10/19/20 12:09 Infused Q6H PRN Infusion Nausea And Vomiting Cefoxitin Sodium 1,000 mg/ 60 mls @ 100 mls/hr 09/19/20 12:30 09/19/20 14:25 Dextrose IV 09/29/20 12:29 Infused Q6H JONATHAN Infusion Morphine Sulfate 2 mg 09/19/20 11:10 09/19/20 13:28 Morphine Sulfate 2 Mg/Ml Carp IV 10/03/20 11:09 2 mg Q2H PRN Administration Pain Past Medical History Medical History Abnormal finding on breast imaging Depression with anxiety Gastric ulcer Gastritis Obesity Past Family History Family History Father Hypertension Past Surgical History Surgical History No history of previous surgery Social History Smoking Status: Never smoker Do You Dip or Chew Tobacco: No Hx Alcohol Use: No Hx Substance Use: No substance use type: does not use Physical Exam Vital Signs Last Vital Signs Temp 37.1 C 09/19/20 16:00 Pulse 81 09/19/20 16:00 Resp 18 09/19/20 16:00 BP 133/86 09/19/20 16:00 Pulse Ox 96 09/19/20 16:00 Testing Laboratory Results 09/19/20 04:42 09/19/20 04:42 Urine Color Yellow 09/19/20 04:52 Urine Appearance Cloudy (Clear) A 09/19/20 04:52 Urine pH 6.0 (4.5-7.5) 09/19/20 04:52 Ur Specific [place] 1.017 (1.000-1.030) 09/19/20 04:52 Urine Protein Negative (Negative) 09/19/20 04:52 Urine Glucose (UA) Negative (Negative) 09/19/20 04:52 Urine Ketones 1+ (Negative) H 09/19/20 04:52 Urine Nitrite Negative (Negative) 09/19/20 04:52 Ur Leukocyte Esterase Negative (Negative) 09/19/20 04:52 Urine WBC (Auto) 1-5 /hpf (0-5) 09/19/20 04:52 Urine RBC (Auto) 5-10 /hpf (0-4) H 09/19/20 04:52 U Hyaline Cast (Auto) 10-30 /lpf (0-5) H 09/19/20 04:52 U Epithel Cells (Auto) >30 /lpf (0-5) H 09/19/20 04:52 Urine Bacteria (Auto) Negative (Negative) 09/19/20 04:52 09/19/20 04:54 POC Ur Test NEG
[2020-09-20 06:17] LABS: Basophils # (auto) 0.04 K/uL (0-0.2); Basophils % (auto) 0.7 %; Eosinophils # (auto) 0.14 K/uL (0-0.5); Eosinophils % (auto) 2.3 %; Hemoglobin 13.3 g/dL (12.0-16.0); Immature Granulocytes # (auto) 0.01 K/uL (0.00-0.02); Immature Granulocytes % (auto) 0.2 %; Lymphocytes # (auto) 1.82 K/uL (1.2-3.4); Lymphocytes % (auto) 29.6 %; Mean Corpuscular Hemoglobin 27.9 pg (25-34); Mean Corpuscular Hgb Conc 32.4 g/dL (32-36); Mean Corpuscular Volume 86.1 fL (80-100); Mean Platelet Volume 10.4 fL (7.4-10.4); Monocytes # (auto) 0.47 K/uL (0.11-0.59); Monocytes % (auto) 7.6 %; Neutrophils # (auto) 3.67 K/uL (1.4-6.5); Neutrophils % (auto) 59.6 %; Platelet Count 312 K/uL (130-400); RDW Coefficient of Variation 13.4 % (11.5-14.5); RDW Standard Deviation 42.1 fL (36.4-46.3); Red Blood Count 4.76 M/uL (4.2-5.4); White Blood Count 6.15 K/uL (4.8-10.8)
[2020-09-20] MEDS ORDERED: MIDAZOLAM HCL 1 MG/ML 2ML VIAL ONE (06:49)
[2020-09-20] MEDS ORDERED: fentaNYL citrate 100 MCG/2 ML VIAL ONE (06:49)
--- NOTE | 2020-09-20 06:52 | History & Physical Bridge Note ---
Date of Service September 20, 2020 History & Physical Bridge Note I have examined the patient, reviewed the History & Physical and in the interval since the performance of the History & Physical I have noted the following changes of clinical significance: no changes noted
[2020-09-20 06:58] LABS: Albumin Level 3.4 gm/dl (3.4-5.0); BUN Creatinine Ratio 9.8 (10-20); Calcium 9.4 mg/dl (8.5-10.1); Creatinine Clr Calc Pharmacy 86.6 ml/min; Est GFR (African American) 79.9 ml/min; Magnesium 2.2 mg/dl (1.8-2.4); Potassium 3.5 mmol/L (3.5-5.1)
[2020-09-20 07:01] LABS: Albumin Globulin Ratio 0.8 (0.9-2); Bilirubin,Total 0.4 mg/dl (0.2-1); Total Protein 7.4 gm/dl (6.4-8.2)
[2020-09-20] MEDS ORDERED: BUPIVACAINE 0.5 % 5 MG/1 ML MPF 30ML VIAL ONE (07:09)
[2020-09-20] MEDS ORDERED: ONDANSETRON INJ 2 MG/ML 2 ML VIAL ONE (07:43)
[2020-09-20] MEDS ORDERED: ROCURONIUM BROMIDE 10 MG/ML 5 ML VIAL IV ONE (07:43)
[2020-09-20] MEDS ORDERED: PROPOFOL IV EMULSION 10 MG/ML 20 ML VIAL IV ONE (07:43)
[2020-09-20] MEDS ORDERED: LIDOCAINE 2% 2 ML VIAL/AMP(20MG/ML) INFIL ONE (07:43)
[2020-09-20] MEDS ORDERED: DEXAMETHASONE SOD INJ 4 MG/ML VIAL ONE (07:43)
[2020-09-20] MEDS ORDERED: KETOROLAC 30 MG/ML VIAL ONE (07:43)
[2020-09-20] MEDS ORDERED: NEOSTIGMINE METHYLSULFATE 5 MG/5 ML SYR ONE (07:43)
[2020-09-20] MEDS ORDERED: GLYCOPYRROLATE 0.2 MG/ML VIAL ONE (07:43)
[2020-09-20] MEDS ORDERED: LARYING-O-JET KIT (LTA) ONE (07:43)
[2020-09-20] MEDS ORDERED: HYDROmorphone INJ 2 MG/ML SYR/VIAL ONE (07:44)
[2020-09-20] MEDS ORDERED: ACETAMINOPHEN 1000 MG/100 ML IV IV ONE (08:08)
[2020-09-20] MEDS ORDERED: PROMETHAZINE HCL 12.5 MG in SODIUM CHLORIDE 0.9% 50 ML IV PRN (08:18)
[2020-09-20] MEDS ORDERED: FLUMAZENIL 0.1 MG/1 ML 10 ML VIAL IV PRN (08:18)
[2020-09-20] MEDS ORDERED: LABETALOL HCL IV 5 MG/ML 20ML IV PRN (08:18)
[2020-09-20] MEDS ORDERED: ePHEDrine sulfate 50 MG/ML AMP IV PRN (08:18)
[2020-09-20] MEDS ORDERED: NALOXONE HCL 0.4 MG/1 ML VIAL/CARP IV PRN (08:18)
[2020-09-20] MEDS ORDERED: ONDANSETRON INJ 2 MG/ML 2 ML VIAL IV PRN (08:18)
[2020-09-20] MEDS ORDERED: ATROPINE SULFATE 0.1 MG/ML 10ML SYR IV PRN (08:18)
[2020-09-20] MEDS ORDERED: fentaNYL citrate 100 MCG/2 ML VIAL IV PRN (08:18)
--- NOTE | 2020-09-20 08:18 | Post Operative Brief Note ---
PG Immediate Post Op with CF Date of Surgery September 20, 2020 Pre & Post Diagnosis Operation Date: 09/20/20 07:15 Pre-Op Diagnosis: Cholecystitis Post-Op Diagnosis: Cholecystitis I identified the patient and participated in the time-out.: Yes Procedure Operation Date: 09/20/20 07:15 Actual Procedures p Laparoscopic Cholecystectomy - Mekhi Alvarez MD, FACS Surgeon Mekhi Alvarez MD, FACS Opener nurses Estimated Blood Loss 10 Findings Consistent with Post-Op Diagnosis Specimens Specimen Description: A. Gallbladder
--- NOTE | 2020-09-20 08:33 | Operative Report (OR) ---
DATE OF OPERATION: 09/20/2020 NAME OF OPERATION: Laparoscopic cholecystectomy. PREOPERATIVE DIAGNOSIS: Acute cholecystitis. POSTOPERATIVE DIAGNOSIS: Acute cholecystitis. STAFF SURGEON: Mekhi Alvarez MD. ANESTHESIA: General. DESCRIPTION OF PROCEDURE: The patient was brought in the operating room and placed on the operating table in supine position. Her abdomen was prepped and draped in usual fashion. 0.5% plain Marcaine was used to anesthetize all incisions. Incision was made in the upper part of the umbilicus below piercing, carrying dissection down to the fascia. The fascia was brought up into the field with the peritoneum and using Metzenbaum scissors, I was able to enter the abdomen, placing a 5 mm port. Pneumoperitoneum was produced. An 11 mm port was then placed at this level and then under visualization, three 5 mm ports placed, 1 cephalad and 2 laterally. The patient was placed in reverse Trendelenburg position. Her gallbladder was extremely distended. It was aspirated of sludge-like bile. Dissection was carried out the se hepatis showing some evidence of scar tissue chronically. The cystic duct and cystic artery were identified, clipped and transected. The gallbladder was then dissected away from the liver bed in the usual fashion, placed in an Endobag. After appropriate irrigation and hemostasis, the Endobag was removed through the umbilical site. The umbilical fascia was then closed using interrupted 0 PDS suture. Skin at the umbilicus closed using 5-0 Prolene suture. Other sites closed using subcuticular 4-0 Monocryl with Dermabond. The patient was transferred to recovery room in stable condition. I attest to the content of the Intraoperative Record and any orders documented therein. Any exception s are noted below.
--- NOTE | 2020-09-20 09:13 | Anesthesiology Progress Note ---
Date of Service September 20, 2020 Anesthesia Post Procedure Vital Signs Vital Signs: Temp Pulse Pulse Pulse Resp BP BP 09/20/20 08:55 90 14 154/90 H 09/20/20 08:50 93 H 16 137/95 09/20/20 08:40 106 H 14 138/88 09/20/20 08:31 36.7 C 117 H 14 162/92 H 09/20/20 06:55 37.0 C 94 H 16 166/94 H 09/19/20 23:27 36.6 C 90 16 156/81 H 09/19/20 16:00 37.1 C 81 18 133/86 09/19/20 11:19 36.6 C 98 H 18 137/89 09/19/20 11:10 36.6 C 98 H 16 137/89 09/19/20 10:45 93 H 18 171/107 H Pulse Ox 09/20/20 08:55 96 09/20/20 08:50 96 09/20/20 08:40 96 09/20/20 08:31 97 09/20/20 06:55 100 09/19/20 23:27 95 09/19/20 16:00 96 09/19/20 11:19 95 09/19/20 11:10 95 09/19/20 10:45 98 Pain Intensity Upper Abdomen: Pain Intensity: 0 Transfer of Care Handoff Completed per policy Notes Mental Status: alert / awake / arousable Patient Amnestic to Procedure: Yes Nausea / Vomiting: adequately controlled Pain: adequately controlled Airway Patency, RR, SpO2: stable & adequate BP & HR: stable & adequate Hydration State: stable & adequate Anesthetic Complications: no major complications apparent
[2020-09-20] MEDS ORDERED: IBUPROFEN 600 MG TAB PO PRN (09:42)
[2020-09-20] MEDS ORDERED: MoRPHine SULFATE 4 MG/ML 1 ML CARP\\VIAL IV PRN (09:42)
[2020-09-20] MEDS ORDERED: HYDROCODONE/ACETAMOPHEN 5/325MG TAB PO PRN ×2 (09:42)
[2020-09-20] MEDS ORDERED: ACETAMINOPHEN 325 MG TAB PO PRN (09:42)
[2020-09-20] MEDS: PANTOprazole 40 MG in SYRINGE 0 ML IV SCH (09:44)
[2020-09-20] MEDS: SODIUM CHLORIDE 0.9% 1000ML 1,000 ML IV SCH (10:43)
[2020-09-20] MEDS: MoRPHine SULFATE 2 MG/ML CARP IV PRN ×2 (15:44→19:22)
--- NOTE | 2020-09-20 18:25 | Hospitalist Progress Note ---
Date of Service September 20, 2020 Assessment & Plan (1) Acalculous cholecystitis: (2) Acute epigastric pain: Pain in RUQ and epigastric region and nausea/vomiting x 3 days without relief with GI cocktails, Pepcid , Prilosec, antiemetics. With a h/o gastric ulcer and with recent stress. No evidence of GI bleeding RUQ US, CT abd/pel negative, HIDA scan with low EF 18% but no acute elizabeth. Labs normal, no evidence of infection COVID neg Admitted and seen by Surgery who recommend lap elizabeth--> now s/p lap elizabeth on 09/[address] Alvarez which showed severely distended GB, scarring, and aspirated sludge GI deferred on EGD due to likelihood of sxs from GB -started IV Protonix 40mg bid but now will convert to Protonix 40mg po qday for usual GERD symptoms as pain was from elizabeth -awa reg diet, doing very well post-op -pain meds and bowel regimen as per Surgery likely dc to home tomorrow continue gentle maintenance IVFs -continue cefoxitin (3) Nausea: as above (4) Depression with anxiety: continue home celexa (5) Abnormal finding on breast imaging: left retroareolar density on CT abd/pel no mass palpated on breast exam on admission, no erythema or nipple inversion, skin dimpling advised outpt diagnostic mammogram, US Discussed with patient at time of admission and again today (6) DVT prophylaxis: SCDs and SQ heparin Dispo-continued stay but likely dc tomorrow FULL CODE Admission and Anticipated Discharge Date Admission Date: September 19, 2020 Subjective Pt reports feeling so much better since the lap elizabeth. Only minimal crampy pain and gas pains from CO2 but nothing like what brought her in. Denies CP/SOB. No lightheadedness or nausea. She is tolerating regular diet. Is ambulating in the room. Review of Systems Review of Systems: All systems reviewed & are unremarkable except as noted in HPI & below Physical Exam Constitutional: WD/WN, vitals as above Eyes: + anicteric sclerae ENMT: Ears: no hearing impairment and no external ear abnormality Neck: trachea midline, no thyromegaly Respiratory: normal respiratory effort, lungs clear to auscultation Cardiovascular: RRR, no murmur, no edema Chest (Breasts): Chest: normal inspection of chest Gastrointestinal (Abdomen): Inspection/Auscultation: normal bowel sounds; + abdomen abnormal to inspection (lap incisions c/d/i,dressing over umbilicus scant dried drainage) and abdomen not distended Percussion/Palpation: abdomen soft; abdomen nontender, no hernia and no abdominal mass Musculoskeletal: Extremities: extremities normal to inspection; no cyanosis and no clubbing Skin: no rashes, warm and dry Neurologic: moves all extremities and awake; no focal motor deficits Psychiatric: A+Ox3, euthymic affect Lymphatic: no lymphedema Results & Data Results & Data ([facility]) Vital Signs (Past 12 Hours) Vital Signs Temp Pulse Pulse Pulse Resp BP Pulse Ox 09/20/20 15:31 37.2 C 89 16 118/77 91 09/20/20 12:45 98 H 16 136/83 93 09/20/20 11:45 95 H 16 133/77 94 09/20/20 10:45 97 H 18 145/85 H 94 09/20/20 10:15 95 H 18 132/74 94 09/20/20 09:45 36.4 C L 108 H 16 132/83 94 09/20/20 09:15 90 16 138/89 96 09/20/20 09:05 36.6 C 90 16 137/91 96 09/20/20 08:55 90 14 154/90 H 96 09/20/20 08:50 93 H 16 137/95 96 09/20/20 08:40 106 H 14 138/88 96 09/20/20 08:31 36.7 C 117 H 14 162/92 H 97 09/20/20 06:55 37.0 C 94 H 16 166/94 H 100 Laboratory Results 09/20/20 09/20/20 Range/Units 05:57 05:57 WBC 6.15 (4.8-10.8) K/uL RBC 4.76 (4.2-5.4) M/uL Hgb 13.3 (12.0-16.0) g/dL Hct 41.0 (37-47) % MCV 86.1 (80-100) fL MCH 27.9 (25-34) pg MCHC 32.4 (32-36) g/dL RDW Std Deviation 42.1 (36.4-46.3) fL RDW Coeff of Jeremiah 13.4 (11.5-14.5) % Plt Count 312 (130-400) K/uL MPV 10.4 (7.4-10.4) fL Immature Gran % (Auto) 0.2 % Neut % (Auto) 59.6 % Lymph % (Auto) 29.6 % [place] % (Auto) 7.6 % Eos % (Auto) 2.3 % Baso % (Auto) 0.7 % Neut # (Auto) 3.67 (1.4-6.5) K/uL Lymph # (Auto) 1.82 (1.2-3.4) K/uL [place] # (Auto) 0.47 (0.11-0.59) K/uL Eos # (Auto) 0.14 (0-0.5) K/uL Baso # (Auto) 0.04 (0-0.2) K/uL Immature Gran # (Auto) 0.01 (0.00-0.02) K/uL Sodium 141 (136-145) mmol/L Potassium 3.5 (3.5-5.1) mmol/L Chloride 107 (98-107) mmol/L Carbon Dioxide 28 (21-32) mmol/L Anion Gap 5.0 (3-11) BUN 10 (7-18) mg/dl Creatinine 1.00 (0.6-1.2) mg/dl Est Cr Clr Drug Dosing 86.6 ml/min Est GFR ( Amer) 79.9 ml/min Est GFR (Non-Af Amer) 69.0 ml/min BUN/Creatinine Ratio 9.8 L (10-20) Glucose 90 (70-99) mg/dl Calcium 9.4 (8.5-10.1) mg/dl Magnesium 2.2 (1.8-2.4) mg/dl Total Bilirubin 0.4 (0.2-1) mg/dl AST 13 L (15-37) U/L ALT 23 (12-78) U/L Alkaline Phosphatase 79 (45-117) U/L Total Protein 7.4 (6.4-8.2) gm/dl Albumin 3.4 (3.4-5.0) gm/dl Globulin 4.0 (2.5-4.0) gm/dl Albumin/Globulin Ratio 0.8 L (0.9-2) PG Care Time/CCT Total # of Minutes Spent Total Time Spent with Patient: Total time spent is greater than 50% in coordination of care (as documented) at patient's floor/unit and/or counseling patient: Coding Level of Care Code 28794 Subseq Hosp Care Lvl 2 Diagnoses Acalculous cholecystitis K81.9 Acute epigastric pain R10.13 Nausea R11.0 Depression with anxiety F41.8 Abnormal finding on breast imaging R92.8 DVT prophylaxis Z29.9
[2020-09-21 06:29] LABS: Basophils # (auto) 0.02 K/uL (0-0.2); Basophils % (auto) 0.2 %; Eosinophils # (auto) 0.11 K/uL (0-0.5); Eosinophils % (auto) 1.2 %; Hematocrit (blood only) 36.8 % (37-47); Hemoglobin 12.2 g/dL (12.0-16.0); Immature Granulocytes # (auto) 0.02 K/uL (0.00-0.02); Immature Granulocytes % (auto) 0.2 %; Lymphocytes # (auto) 2.19 K/uL (1.2-3.4); Lymphocytes % (auto) 23.2 %; Mean Corpuscular Hemoglobin 28.1 pg (25-34); Mean Corpuscular Hgb Conc 33.2 g/dL (32-36); Mean Corpuscular Volume 84.8 fL (80-100); Mean Platelet Volume 10.3 fL (7.4-10.4); Monocytes # (auto) 0.76 K/uL (0.11-0.59); Monocytes % (auto) 8.1 %; Neutrophils # (auto) 6.34 K/uL (1.4-6.5); Neutrophils % (auto) 67.1 %; Platelet Count 293 K/uL (130-400); RDW Coefficient of Variation 13.1 % (11.5-14.5); RDW Standard Deviation 40.4 fL (36.4-46.3); Red Blood Count 4.34 M/uL (4.2-5.4); White Blood Count 9.44 K/uL (4.8-10.8)
[2020-09-21] MEDS: SODIUM CHLORIDE 0.9% 1000ML 1,000 ML IV SCH (07:10)
[2020-09-21 07:15] LABS: Albumin Level 3.2 gm/dl (3.4-5.0); BUN Creatinine Ratio 15.3 (10-20); Bilirubin Direct 0.1 mg/dl (0-0.2); Calcium 8.6 mg/dl (8.5-10.1); Creatinine Clr Calc Pharmacy 112.5 ml/min; Est GFR (African American) 109.6 ml/min; Est GFR (Non-African American) 94.6 ml/min; Magnesium 2.2 mg/dl (1.8-2.4); Potassium 3.5 mmol/L (3.5-5.1)
[2020-09-21 07:18] LABS: Albumin Globulin Ratio 0.9 (0.9-2); Bilirubin,Total 0.3 mg/dl (0.2-1); Globulin 3.7 gm/dl (2.5-4.0); Phosphorus 3.6 mg/dl (2.5-4.9); Total Protein 6.9 gm/dl (6.4-8.2)
--- NOTE | 2020-09-21 08:42 | Discharge Summary (DS) ---
PRINCIPAL DIAGNOSIS: Acute cholecystitis. PROCEDURES: The patient underwent laparoscopic cholecystectomy. HISTORY OF PRESENT ILLNESS: The patient is a 45-year-old female who developed severe abdominal pain, nausea and vomiting, requiring admission through the Emergency Room. It was suspected she had a severe biliary colic and possible acute cholecystitis. HOSPITAL COURSE: The patient was taken to the operating room on 09/20/2020 where she underwent laparoscopic cholecystectomy showing a very distended gallbladder with inflammation in the se hepatis. The patient has done quite well since the operation and is ready for discharge today to be followed in the surgical clinic within 1 week.
[2020-09-21] MEDS ORDERED: HEPARIN SOD 5,000 UNIT/0.5 ML VIAL SQ SCH (09:00)
[2020-09-21] MEDS ORDERED: PANTOprazole 40 MG TAB PO SCH (09:00)
[2020-09-21] MEDS ORDERED: DOCUSATE SODIUM/SENNA 50/8.6MG TAB PO SCH (09:00)
[2020-09-21] MEDS ORDERED: MAGNESIUM HYDROXIDE SUSP 30 ML UDC PO SCH (09:00)
== END 2020-09-21 10:29 | disposition home or self-care (01) ==
LOC: 3N 04:03 → ED 04:03 → SUATTDRO 10:34 → 3N 11:02